=== PATIENT | female | born 1950 | race Caucasian/White ===

== ENCOUNTER 2020-10-21 13:48 | Inpatient (IN) | payer MEDICARE ==
[~2020-10-21] VITALS: Ht 167.6 cm; Wt 53.5 kg
[2020-10-21] MEDS ORDERED: Simvastatin10 MG PO (14:27)
[2020-10-21] MEDS ORDERED: EUTHYROX50 MCG PO (14:28)
[2020-10-21 15:20] LABS: BASOPHILS ABSOLUTE AUTO 0.12 K/mm3 (0.00-0.23); BASOPHILS PERCENT AUTO 1 % (0-2); EOSINOPHILS ABSOLUTE AUTO 0.09 K/mm3 (0.00-0.68); EOSINOPHILS PERCENT AUTO 1 % (0-6); Hematocrit 35.3 % (33.0-51.0); Hemoglobin 11.9 g/dL (11.5-16.0); IMMATURE GRAN ABSOLUTE AUTO 0.03 K/mm3 (0.00-0.10); IMMATURE GRAN PERCENT AUTO 0 % (0-1); LYMPHOCYTES ABSOLUTE AUTO 1.85 K/mm3 (0.84-5.20); LYMPHOCYTES PERCENT AUTO 17 % (21-46); MONOCYTES ABSOLUTE AUTO 0.59 K/mm3 (0.16-1.47); MONOCYTES PERCENT AUTO 5 % (4-13); Mean Corpuscular HGB 30.5 pg (26.0-34.0); Mean Corpuscular HGB Conc 33.7 g/dL (31.5-36.5); Mean Corpuscular Volume 91 fL (80-100); Mean Platelet Volume 9.5 fL (9.1-12.4); NEUTROPHILS ABSOLUTE AUTO 8.17 K/mm3 (1.96-9.15); NEUTROPHILS PERCENT AUTO 75 % (41-73); Platelet Count 321 K/mm3 (150-400); RDW Coefficient Variation 13.4 % (11.7-14.2); RDW Standard Deviation 43.9 fL (35.1-46.3); White Blood Cell Count 10.85 K/mm3 (4.00-11.30)
[2020-10-21 15:38] LABS: Alanine Aminotransfer (ALT/SGP 25 U/L (12-78); Albumin, Blood 3.4 g/dL (3.4-5.0); Albumin/Globulin Ratio 0.9 (0.8-1.8); Alk Phos 78 U/L (50-136); Anion Gap 3 mmol/L (6-16); Aspartate Aminotrans (AST/SGOT 21 U/L (12-37); Bilirubin, Total 0.3 mg/dL (0.1-1.0); Blood Urea Nitrogen 11 mg/dL (8-24); Bun/Creatinine Ratio 17.2 (12.0-20.0); CO2, Blood 29 mmol/L (21-32); Calcium, Blood 9.3 mg/dL (8.5-10.1); Chloride, Blood 107 mmol/L (98-108); Creatinine, Blood 0.64 mg/dL (0.40-1.00); Globulin, Blood 3.7 g/dL (2.2-4.0); Glomerular Filtration Rate >60 (60-); Glucose, Blood 94 mg/dL (70-99); Potassium, Blood 3.9 mmol/L (3.5-5.5); Sodium, Blood 139 mmol/L (136-145); Total Protein, Blood 7.1 g/dL (6.4-8.2)
[2020-10-21] MEDS ORDERED: FOSAMAX70 MG PO (16:54)
[2020-10-21 17:17] LABS: Influenza A, PCR NEGATIVE (NEGATIVE); Influenza B, PCR NEGATIVE (NEGATIVE); Resp Syncytial Virus, PCR NEGATIVE (NEGATIVE); SARS-Cov-2 (COVID-19) PCR, MMC NEGATIVE (NEGATIVE)
--- NOTE | 2020-10-21 18:43 | NUR ---
ADMIT PT ARRIVED TO UNIT FROM ER AT APROX 1835. R HIP EXTERNALLY ROTATED AND SHORTENED. PT REPORTS PAIN "OK LONG I DONT MOVE". PLAN FOR PT TO GO TO OR TOMORROW WITH DR BULLARD
[2020-10-22 04:11] LABS: BASOPHILS PERCENT AUTO 1 % (0-2); EOSINOPHILS ABSOLUTE AUTO 0.03 K/mm3 (0.00-0.68); EOSINOPHILS PERCENT AUTO 0 % (0-6); Hemoglobin 11.6 g/dL (11.5-16.0); IMMATURE GRAN ABSOLUTE AUTO 0.04 K/mm3 (0.00-0.10); IMMATURE GRAN PERCENT AUTO 0 % (0-1); LYMPHOCYTES ABSOLUTE AUTO 1.62 K/mm3 (0.84-5.20); LYMPHOCYTES PERCENT AUTO 13 % (21-46); MONOCYTES PERCENT AUTO 6 % (4-13); Mean Corpuscular HGB 30.3 pg (26.0-34.0); Mean Corpuscular HGB Conc 33.1 g/dL (31.5-36.5); Mean Corpuscular Volume 91 fL (80-100); Mean Platelet Volume 9.3 fL (9.1-12.4); NEUTROPHILS ABSOLUTE AUTO 9.57 K/mm3 (1.96-9.15); NEUTROPHILS PERCENT AUTO 80 % (41-73); Platelet Count 294 K/mm3 (150-400); RDW Coefficient Variation 13.6 % (11.7-14.2); RDW Standard Deviation 45.5 fL (35.1-46.3); Red Blood Cell Count 3.83 M/mm3 (3.80-5.20); White Blood Cell Count 12.06 K/mm3 (4.00-11.30)
--- NOTE | 2020-10-22 04:22 | NUR ---
SHIFT SUMMARY PT HAS BEEN A/O X4. BEDREST R/T R HIP FX. PAIN MANAGED WITH REPOSITIONING AND IV DILAUDED PRN. PT STATES THIS IS WORKING WELL. PLAN IS FOR SURGERY TODAY. HAS BEEN NPO SINCE MIDNIGHT IN ANTICIPATION OF SURGERY. VOIDING USING BEDPAN. PT RESTING IN BED AT THIS TIME, CALL LIGHT IN REACH.
[2020-10-22 04:25] LABS: International Normalized Ratio 0.94; Prothrombin Time Results 10.1 Sec (9.7-11.5)
[2020-10-22 04:29] LABS: Anion Gap 3 mmol/L (6-16); Blood Urea Nitrogen 10 mg/dL (8-24); Bun/Creatinine Ratio 15.8 (12.0-20.0); CO2, Blood 30 mmol/L (21-32); Calcium, Blood 8.9 mg/dL (8.5-10.1); Chloride, Blood 105 mmol/L (98-108); Creatinine, Blood 0.63 mg/dL (0.40-1.00); Glomerular Filtration Rate >60 (60-); Glucose, Blood 118 mg/dL (70-99); Potassium, Blood 4.3 mmol/L (3.5-5.5); Sodium, Blood 138 mmol/L (136-145)
--- NOTE | 2020-10-22 14:24 | NUR ---
PT TO OR AT APROX 142
--- NOTE | 2020-10-23 04:51 | NUR ---
SHIFT SUMMARY PT IS A/O X4. 1X ASSIST WITH FWW AND GAIT BELT UP TO BATHROOM TO VOID. PT AMBULATED TO BATHROOM WELL. REPORTS MILD DISCOMFORT OVERNIGHT. POLAR PACK IN PLACE TO R HIP OVERNIGHT AND SCD'S IN PLACE. PT IS TOLERATING PO INTAKE W/O NAUSEA. REPOSITIONING SELF WITH ASSISTANCE PRN. PT RESTING AT THIS TIME WITH CALL LIGHT IN REACH.
--- NOTE | 2020-10-23 16:28 | NUR ---
SHIFT SUMMARY PT IS POD#1 FROM [facility] WITH DR BULLARD. PAIN HAS BEEN MANAGED WITH NORCO. PT IS A 1 PERSON ASSIST WITH GAIT BELT AND WALKER. PT IS WAITING FOR ANOTHER SESSION OF THERAPY BEFORE DISCHARGE. DISCHARGE PLANNING HAS ALSO BEEN NOTIFIED THIS PT WILL NEED ASSISTANCE SCHEDULING FOLLOW-UP IN [place] SHE IS NOT FROM THE [facility]. WILL CONTINUE TO MONITOR.
--- NOTE | 2020-10-24 05:16 | NUR ---
SHIFT SUMMARY LYING IN SEMI FOWLERS WITH EYES OPEN. HAS RESTED OFF AND ON THROUGHOUT SHIFT. NO SIGNIFICANT CHANGES NOTED. STATED THAT HER PAIN HAS STARTED TO INCREASE AFTER AMBULATION, MEDICATED PER EMAR. RIGHT HIP AQUACEL AND POLAR ILIA REMAIN C/D/I AND IN PLACE. AMBULATION WITH FWW AND GAIT BELT TOLERATED WELL. SL PIV AFTER PT ABLE TO TOLERATE FLUIDS WITH EASE. DENIES N/V, OR FURTHER NEEDS AT THIS TIME. SAFETY MEASURES IN PLACE. WILL CONTINUE TO MONITOR AND GIVE HAND OFF TO ONCOMING SHIFT USING SBAR.
[2020-10-24] MEDS ORDERED: SENN187 PO (10:59)
[2020-10-24] MEDS ORDERED: HYDR1TAB94 PO (10:59)
--- NOTE | 2020-10-24 11:52 | NUR ---
PT PROVIDED WITH WRITTEN AND VERBAL DISCHARGE INSTRUCTIONS; SHE REPORTED UNDERSTANDING. DRESSINGS AND SCRIPTS PROVIDED. PT IS AWAITING EQUIPMENT DELIVERY AND RIDE HOME.
--- NOTE | 2020-10-24 14:05 | NUR ---
DISCUSSED NEED FOR BLOOD THINNER WITH DR. PARKER. DR. ANTONIO SAID OK FOR ASA 81MG PO BID X4 WEEKS. PT WAS CALLED AND NOTIFIED OF NEED FOR ASPIRIN TO USE A BLOOD THINNER.
== END 2020-10-24 12:20 | disposition home or self-care (01) | DRG 522 ==
LOC: ER 13:48 → SURS 18:18
PROVIDERS: Orthopaedic Surgery; Physician Assistant; ADMIT Internal Medicine
PROC: 0SR90JA Replacement of Right Hip Joint with Synthetic Substitute, Uncemented, Open Approach (ICD-10-PCS; principal; 2020-10-22 15:00)
DX: S72.001A Fracture of unspecified part of neck of right femur, initial encounter for closed fracture (principal); W19.XXXA Unspecified fall, initial encounter; E03.9 Hypothyroidism, unspecified; E78.5 Hyperlipidemia, unspecified; M81.0 Age-related osteoporosis without current pathological fracture; Z20.822 Contact with and (suspected) exposure to COVID-19
CPT/HCPCS: 0241U; 36415; 71045; 72170; 73502; 80048; 80053; 85025; 85610; 88305; 88311; 93005; 93010; 96374; 96375; 96376; 97110; 97116; 97161; 97165; 97530; 97535; 99285-25; A9270; C1776; J0171; J0690; J0735; J1100; J1170; J1200; J1644; J1885; J2310; J2370; J2405; J2704; J2710; J2795; J3010; J7120